=== PATIENT | female | born 1950 | race American Indian/Alaskan Native ===

== ENCOUNTER 2021-12-20 09:39 | Outpatient (CLI) | payer MEDICARE ==
--- NOTE | 2021-12-20 14:00 | Ultrasound Report ---
ULTRASOUND ABDOMEN, LIMITED INDICATION / CLINICAL INFORMATION: R94.5. Abnormal lab values. COMPARISON: None available. FINDINGS: PANCREAS: Visualized portion shows no significant abnormality. AORTA: No significant abnormality. IVC: Not well visualized. LIVER: The liver is normal in size measuring 14.5 cm with diffusely heterogeneous appearance and nodu lar contour.. Normal hepatopedal blood flow within the main portal vein. GALLBLADDER: No significant abnormality. BILE DUCTS: No significant abnormality. Common bile duct measures 4 mm. RIGHT KIDNEY: The right kidney measures 10.4 cm. Mildly increased echogenicity. FREE FLUID: None. ADDITIONAL FINDINGS: None. IMPRESSION: 1. Cirrhotic morphology of the liver. No focal hepatic lesion. 2. Findings suggestive of medical renal disease on the right. Scribed by: Chrissy Hickey RDMS, RVT, RMSKS Scribed: 12/20/2021 12:53 PM I have reviewed the images, agree with this report, and edited this report as needed. Signer Name: Royer Davidson MD Signed: 12/20/2021 1:55 PM Workstation Name: [id number]
== END 2021-12-20 09:40 | disposition home or self-care (01) ==
LOC: US 09:39
DX: K74.60 Unspecified cirrhosis of liver (principal); R94.5 Abnormal results of liver function studies
CPT/HCPCS: 76705